=== PATIENT | male | born 1940 | race Caucasian/White ===

== ENCOUNTER 2021-11-16 03:14 | Inpatient (IN) ==
[2021-11-16] MEDS ORDERED: *HR* Dextrose 50 % in Water (Syg) 50 ML SYRINGE IVP PRN ×2 (07:30→09:28)
[2021-11-16] MEDS ORDERED: D5% in 0.45% NACL 1,000 ML IVC PRN (07:30)
[2021-11-16] MEDS ORDERED: D5% in 0.45% NACL w KCl 20 MEQ/1,000 ML MLS IVC PRN (07:30)
[2021-11-16] MEDS ORDERED: Insulin Regular, Human 100 UNIT/ML IV PRN (07:30)
[2021-11-16] MEDS ORDERED: D5% in 0.9% NACL w KCl 20 MEQ/1,000 ML MLS IVC SCH (07:30)
[2021-11-16] MEDS ORDERED: MOM Conc 10 ML UD.LIQ PO PRN (07:34)
[2021-11-16] MEDS ORDERED: Ondansetron ODT 4 MG TAB.RAPDIS SL PRN (07:34)
[2021-11-16] MEDS ORDERED: Naloxone 0.4 MG/ML INJ IVP PRN (07:34)
[2021-11-16] MEDS ORDERED: Acetaminophen 325 MG TABLET PO PRN (07:34)
[2021-11-16] MEDS ORDERED: Melatonin 3 MG TABLET PO PRN (07:34)
[2021-11-16] MEDS ORDERED: *HR* Heparin 5,000 UNIT/ML VIAL IVP PRN ×2 (07:49)
[2021-11-16] MEDS ORDERED: Perflutren Lipid Microsphere 1.3 ML in 0.9 % Sodium Chloride 8.7 ML IVP PRN (08:10)
[2021-11-16 08:46] LABS: VBG HCO3 28 mEq/L (21-27); VBG PCO2 60 mmHg (41-51); VBG PH 7.27 pH Units (7.32-7.42); VBG PO2 52 mmHg (25-50)
[2021-11-16 09:03] LABS: BUN/Creatinine Ratio 29 (6-26); Blood Urea Nitrogen 33 mg/dL (8-23); Calcium 10.1 mg/dL (8.6-10.3); Carbon Dioxide 27 mEq/L (23-29); Chloride 104 mEq/L (98-107); Glucose 131 mg/dL (70-105); Magnesium 1.4 mg/dL (1.6-2.6); Osmolality,Calculated 299 (280-300); Potassium 4.1 mEq/L (3.5-5.1); Sodium 140 mEq/L (136-145); eGFR For African Americans > 60 (> 60); eGFR For Non-African Americans > 60 (> 60)
[2021-11-16] MEDS ORDERED: Dextrose 4 GM Chewable Tablets PO PRN ×2 (09:28)
[2021-11-16] MEDS ORDERED: D5% in Water 1,000 ML IVC PRN (09:28)
[2021-11-16 09:29] LABS: INR 1.1; Prothrombin Time 11.7 Seconds (9.4-12.1)
[2021-11-16] MEDS ORDERED: Insulin DETEMIR 100 UNIT/ML X5UNITS SUBQ ONE (09:29)
[2021-11-16 09:30] LABS: Heparin anti-factor XA UFH 0.63 IU/mL (0.30-0.70)
[2021-11-16 10:02] LABS: Troponin I 14.01 ng/mL (< 0.04)
[2021-11-16] MEDS: Heparin 25,000UNIT/250ML 1/2NS 25,000 UNIT/250 ML IV.SOLN IVC SCH (10:15)
[2021-11-16 11:28] LABS: Basophils % 0.2 %; Eosinophils % 0.2 %; Hematocrit 36.1 % (37.5-50.1); Hemoglobin 11.8 g/dL (12.9-16.9); Immature Granulocytes % 0.4 % (0-4); Lymphocytes # 2.7 K/mcL (0.6-4.6); Lymphocytes % 19.5 %; Mean Corpuscular HGB Conc 32.7 g/dL (31.6-35.5); Mean Corpuscular Volume 91.9 fL (83.0-100.0); Mean Platelet Volume 10.8 fL (9.4-12.4); Monocytes # 1.3 K/mcL (0.0-1.3); Monocytes % 9.3 %; Neutrophils # 9.9 K/mcL (1.6-8.9); Platelet Count 198 K/mcL (140-400); Red Blood Count 3.93 M/mcL (4.19-5.50); Red Cell Distribution Width 13.2 % (11.5-14.5); Segmented Neutrophils % 70.4 %
[2021-11-16] MEDS ORDERED: Insulin LISPRO 300 UNITS/3 ML VIAL SUBQ SCH ×2 (11:30→21:00)
[2021-11-16] MEDS: Insulin LISPRO 300 UNITS/3 ML VIAL SUBQ SCH ×3 (13:56→20:12)
[2021-11-16 17:00] LABS: VBG HCO3 25 mEq/L (21-27); VBG PCO2 48 mmHg (41-51); VBG PH 7.33 pH Units (7.32-7.42); VBG PO2 183 mmHg (25-50)
[2021-11-17] MEDS: Insulin LISPRO 300 UNITS/3 ML VIAL SUBQ SCH ×7 (00:35→23:45)
[2021-11-17 05:21] LABS: Hematocrit 39.6 % (37.5-50.1); Hemoglobin 12.9 g/dL (12.9-16.9); Mean Corpuscular HGB Conc 32.6 g/dL (31.6-35.5); Mean Corpuscular Hemoglobin 29.6 pg (28.0-33.3); Mean Corpuscular Volume 90.8 fL (83.0-100.0); Mean Platelet Volume 10.7 fL (9.4-12.4); Platelet Count 204 K/mcL (140-400); Red Blood Count 4.36 M/mcL (4.19-5.50); Red Cell Distribution Width 13.2 % (11.5-14.5); White Blood Count 11.4 K/mcL (4.3-11.1)
[2021-11-17 05:39] LABS: BUN/Creatinine Ratio 25 (6-26); Blood Urea Nitrogen 27 mg/dL (8-23); Calcium 9.6 mg/dL (8.6-10.3); Carbon Dioxide 26 mEq/L (23-29); Chloride 106 mEq/L (98-107); Glucose 151 mg/dL (70-105); Osmolality,Calculated 300 (280-300); Potassium 4.5 mEq/L (3.5-5.1); Sodium 141 mEq/L (136-145); eGFR For African Americans > 60 (> 60); eGFR For Non-African Americans > 60 (> 60)
[2021-11-17] MEDS: Heparin 25,000UNIT/250ML 1/2NS 25,000 UNIT/250 ML IV.SOLN IVC SCH (11:32)
[2021-11-17] MEDS: Magnesium Oxide 400 MG TABLET PO SCH ×2 (11:40→20:53)
[2021-11-17] MEDS: Aspirin Enteric Coated 81 MG Tablet PO SCH (11:40)
[2021-11-17] MEDS ORDERED: 0.9 % Sodium Chloride 2,000 ML ONE (12:47)
[2021-11-17] MEDS ORDERED: Nitroglycerin 1,000 MCG/5 ML VIAL IV ONE ×2 (12:48→14:20)
[2021-11-17] MEDS ORDERED: Heparin 1,000 UNITS/500 mL 500 ML ONE ×3 (12:48→15:04)
[2021-11-17] MEDS ORDERED: *HR* Heparin 10,000 UNIT/10 ML VIAL ONE ×3 (12:48→14:29)
[2021-11-17] MEDS ORDERED: ISOVUE-370 200 ML INFUS..BTL ONE ×2 (12:48→14:20)
[2021-11-17 13:19] LABS: Estimated Average Glucose 246 mg/dl; Hemoglobin A1C 10.2 %
[2021-11-17] MEDS ORDERED: *HR* Midazolam HCl 2 MG/2 ML VIAL ONE (13:50)
[2021-11-17] MEDS ORDERED: *HR* FentaNYL (PF) 100 MCG/2 ML VIAL ONE (13:50)
[2021-11-17] MEDS ORDERED: 0.9 % Sodium Chloride 1,000 ML ONE (14:20)
[2021-11-17] MEDS ORDERED: Tirofiban 12.5 MG/250ML 12.5 MG/250 ML BAG ONE (14:36)
[2021-11-17] MEDS ORDERED: Magnesium Oxide 400 MG TABLET PO SCH (21:00)
[2021-11-18] MEDS: Insulin LISPRO 300 UNITS/3 ML VIAL SUBQ SCH ×6 (04:59→23:35)
[2021-11-18 05:52] LABS: Basophils % 0.2 %; Eosinophils # 0.1 K/mcL (0.0-0.6); Eosinophils % 1.2 %; Hematocrit 39.5 % (37.5-50.1); Hemoglobin 12.9 g/dL (12.9-16.9); Immature Granulocytes % 0.4 % (0-4); Lymphocytes # 2.8 K/mcL (0.6-4.6); Lymphocytes % 29.3 %; Mean Corpuscular HGB Conc 32.7 g/dL (31.6-35.5); Mean Corpuscular Hemoglobin 29.1 pg (28.0-33.3); Mean Corpuscular Volume 89.2 fL (83.0-100.0); Mean Platelet Volume 10.5 fL (9.4-12.4); Monocytes # 1.1 K/mcL (0.0-1.3); Monocytes % 11.9 %; Neutrophils # 5.4 K/mcL (1.6-8.9); Platelet Count 244 K/mcL (140-400); Red Blood Count 4.43 M/mcL (4.19-5.50); White Blood Count 9.4 K/mcL (4.3-11.1)
[2021-11-18 06:14] LABS: BUN/Creatinine Ratio 19 (6-26); Blood Urea Nitrogen 20 mg/dL (8-23); Carbon Dioxide 30 mEq/L (23-29); Chloride 102 mEq/L (98-107); Glucose 175 mg/dL (70-105); Magnesium 1.9 mg/dL (1.6-2.6); Osmolality,Calculated 295 (280-300); Potassium 3.8 mEq/L (3.5-5.1); Sodium 139 mEq/L (136-145); eGFR For African Americans > 60 (> 60); eGFR For Non-African Americans > 60 (> 60)
[2021-11-18] MEDS ORDERED: Regadenoson 0.4 MG/5 ML SYRINGE IVP ONE (06:34)
[2021-11-18] MEDS: Magnesium Oxide 400 MG TABLET PO SCH ×2 (09:44→21:14)
[2021-11-18] MEDS: rOPINIRole 1 MG TABLET PO SCH (09:44)
[2021-11-18] MEDS: Aspirin Enteric Coated 81 MG Tablet PO SCH (09:45)
[2021-11-18] MEDS: amLODIPine 5 MG TABLET PO SCH (09:45)
[2021-11-18] MEDS: Heparin 25,000UNIT/250ML 1/2NS 25,000 UNIT/250 ML IV.SOLN IVC SCH (21:13)
[2021-11-19] MEDS: Insulin LISPRO 300 UNITS/3 ML VIAL SUBQ SCH ×6 (07:21→23:41)
[2021-11-19] MEDS: rOPINIRole 1 MG TABLET PO SCH (08:11)
[2021-11-19] MEDS: Aspirin Enteric Coated 81 MG Tablet PO SCH (08:12)
[2021-11-19] MEDS: amLODIPine 5 MG TABLET PO SCH (08:12)
[2021-11-19] MEDS: Heparin 25,000UNIT/250ML 1/2NS 25,000 UNIT/250 ML IV.SOLN IVC SCH (09:53)
[2021-11-19 18:21] LABS: Basophils % 0.3 %; Eosinophils # 0.2 K/mcL (0.0-0.6); Eosinophils % 1.8 %; Hematocrit 40.1 % (37.5-50.1); Hemoglobin 13.1 g/dL (12.9-16.9); Immature Granulocytes % 0.4 % (0-4); Lymphocytes % 31.3 %; Mean Corpuscular HGB Conc 32.7 g/dL (31.6-35.5); Mean Corpuscular Hemoglobin 29.6 pg (28.0-33.3); Mean Corpuscular Volume 90.5 fL (83.0-100.0); Mean Platelet Volume 10.7 fL (9.4-12.4); Monocytes # 0.9 K/mcL (0.0-1.3); Monocytes % 9.1 %; Neutrophils # 5.6 K/mcL (1.6-8.9); Platelet Count 235 K/mcL (140-400); Red Blood Count 4.43 M/mcL (4.19-5.50); Segmented Neutrophils % 57.1 %; White Blood Count 9.7 K/mcL (4.3-11.1)
[2021-11-19 18:36] LABS: BUN/Creatinine Ratio 20 (6-26); Blood Urea Nitrogen 25 mg/dL (8-23); Calcium 9.2 mg/dL (8.6-10.3); Carbon Dioxide 27 mEq/L (23-29); Chloride 101 mEq/L (98-107); Chol/HDL Ratio 2.8 (0-4.9); Cholesterol 141 mg/dL (< 200); Glucose 309 mg/dL (70-105); HDL Cholesterol 50 mg/dL (40-59); LDL Cholesterol,Calculated 63 mg/dL (< 100); Osmolality,Calculated 298 (280-300); Potassium 4.2 mEq/L (3.5-5.1); Sodium 136 mEq/L (136-145); Triglycerides 138 mg/dL (< 150); eGFR For African Americans > 60 (> 60); eGFR For Non-African Americans 57 (> 60)
[2021-11-19 18:37] LABS: INR 1.1; Prothrombin Time 12.7 Seconds (9.4-12.1)
[2021-11-19 18:39] LABS: Activated Partial Thrombo Time 76.8 Seconds (26.0-36.0)
[2021-11-19] MEDS: 0.9 % Sodium Chloride 1,000 ML IVC SCH ×4 (19:26→19:30)
[2021-11-19] MEDS: 0.9 % Sodium Chloride w KCl 20 MEQ/1,000 ML MLS IVC SCH ×5 (19:26→19:31)
[2021-11-19] MEDS: Insulin DETEMIR 100 UNIT/ML X5UNITS SUBQ SCH (20:11)
[2021-11-19] MEDS: Chlorhexidine Rinse 15 ML MOUTHWASH MM SCH (20:11)
[2021-11-20 05:46] LABS: Hematocrit 35.4 % (37.5-50.1); Mean Corpuscular HGB Conc 32.5 g/dL (31.6-35.5); Mean Corpuscular Hemoglobin 29.3 pg (28.0-33.3); Mean Corpuscular Volume 90.1 fL (83.0-100.0); Mean Platelet Volume 10.7 fL (9.4-12.4); Platelet Count 211 K/mcL (140-400); Red Blood Count 3.93 M/mcL (4.19-5.50); Red Cell Distribution Width 12.9 % (11.5-14.5); White Blood Count 9.9 K/mcL (4.3-11.1)
[2021-11-20 05:48] LABS: Hemoglobin 11.5 g/dL (12.9-16.9)
[2021-11-20] MEDS: Aspirin 81 MG TAB.CHEW PO SCH ×2 (05:50→10:09)
[2021-11-20 05:53] LABS: INR 1.2; Prothrombin Time 12.9 Seconds (9.4-12.1)
[2021-11-20] MEDS ORDERED: NiCARdipine 2.5 MG/10 ML Syringe IVPB ONE (05:53)
[2021-11-20] MEDS ORDERED: DOBUTamine 1,000 MG/250 ML BAG ONE (05:53)
[2021-11-20] MEDS ORDERED: Papaverine 60 MG/2 ML VIAL IVP ONE (05:54)
[2021-11-20] MEDS ORDERED: *HR* Midazolam HCl 5 MG/5 ML VIAL IVP ONE (05:59)
[2021-11-20] MEDS ORDERED: *HR* FentaNYL (PF) 250 MCG/5 ML VIAL ONE (06:00)
[2021-11-20] MEDS ORDERED: CeFAZolin Syr 2,000MG/20 ML 2,000 MG/20 ML SYRINGE IVPB ONE (06:00)
[2021-11-20] MEDS ORDERED: *HR* Norepinephrine 4 MG/4 ML VIAL IVC ONE (06:01)
[2021-11-20] MEDS ORDERED: *HR* Rocuronium Bromide 50 MG/5 ML VIAL ONE (06:01)
[2021-11-20] MEDS ORDERED: niCARdipine 20 MG/200 ML MLS IVC ONE (06:01)
[2021-11-20] MEDS: Insulin LISPRO 300 UNITS/3 ML VIAL SUBQ SCH ×7 (06:01→23:42)
[2021-11-20] MEDS ORDERED: Calcium Gluconate 1,000 MG/10 ML VIAL ONE (06:02)
[2021-11-20] MEDS ORDERED: *HR* Etomidate 20 MG/10 ML AMPUL IVP ONE (06:02)
[2021-11-20] MEDS ORDERED: Protamine Sulfate 250 MG/25 ML VIAL IVP ONE (06:03)
[2021-11-20 06:09] LABS: BUN/Creatinine Ratio 23 (6-26); Blood Urea Nitrogen 26 mg/dL (8-23); Carbon Dioxide 27 mEq/L (23-29); Chloride 105 mEq/L (98-107); Glucose 129 mg/dL (70-105); Osmolality,Calculated 294 (280-300); Potassium 3.9 mEq/L (3.5-5.1); Sodium 139 mEq/L (136-145); eGFR For African Americans > 60 (> 60); eGFR For Non-African Americans > 60 (> 60)
[2021-11-20] MEDS ORDERED: del Nido Cardioplegia Solution PF ONE ×2 (07:00)
[2021-11-20] MEDS ORDERED: Heparin 15,000 UNIT in 0.9 % Sodium Chloride 500 ML IV ONE (07:00)
[2021-11-20] MEDS ORDERED: Norepinephrine 4 MG in 0.9 % Sodium Chloride 250 ML IVC PRN (07:00)
[2021-11-20] MEDS ORDERED: Buckersberg's Blood Cardioplegia PF ONE (07:00)
[2021-11-20 07:26] LABS: ABG Base Excess 0 mEq/L (-2 to 3); ABG Chloride 105 mEq/L (98-107); ABG Glucose 156 mg/dL (60-95); ABG HCO3 26 mEq/L (21-27); ABG Ionized Calcium 1.24 mmol/L (1.15-1.35); ABG Oxygen Saturation 100 % (95-98); ABG PCO2 46 mmHg (35-45); ABG PH 7.36 pH Units (7.32-7.45); ABG PO2 540 mmHg (85-104); ABG TCO2 28 mEq/L (20-26)
[2021-11-20] MEDS ORDERED: *HR* Phenylephrine 10 MG/ML VIAL ONE (08:11)
[2021-11-20] MEDS ORDERED: Ondansetron 4 MG/2 ML VIAL ONE (08:51)
[2021-11-20 08:52] LABS: ABG Base Excess -2 mEq/L (-2 to 3); ABG Chloride 106 mEq/L (98-107); ABG Glucose 191 mg/dL (60-95); ABG HCO3 23 mEq/L (21-27); ABG Ionized Calcium 1.18 mmol/L (1.15-1.35); ABG Oxygen Saturation 97 % (95-98); ABG PCO2 38 mmHg (35-45); ABG PH 7.39 pH Units (7.32-7.45); ABG PO2 86 mmHg (85-104); ABG TCO2 24 mEq/L (20-26)
[2021-11-20] MEDS ORDERED: Potassium Chloride 40 MEQ/200 ML BAG IVPB PRN (10:04)
[2021-11-20] MEDS ORDERED: Ketorolac 30 MG/ML VIAL ONE (10:04)
[2021-11-20] MEDS ORDERED: Insulin Regular, Human 100 UNIT/ML IV PRN (10:04)
[2021-11-20] MEDS ORDERED: *HR* OxyCODONE/APAP 5/325 TABLET PO PRN ×2 (10:04→13:56)
[2021-11-20] MEDS ORDERED: *HR* Dextrose 50 % in Water (Syg) 50 ML SYRINGE IVP PRN (10:04)
[2021-11-20] MEDS ORDERED: Calcium Gluconate 1gm/50mL 1 GM/50 ML BAG IVPB PRN (10:04)
[2021-11-20] MEDS ORDERED: Ondansetron 4 MG/2 ML VIAL IVP PRN (10:04)
[2021-11-20] MEDS ORDERED: *HR* FentaNYL (PF) 100 MCG/2 ML VIAL IVP PRN (10:04)
[2021-11-20 10:10] LABS: ABG Base Excess -2 mEq/L (-2 to 3); ABG Chloride 104 mEq/L (98-107); ABG Glucose 196 mg/dL (60-95); ABG HCO3 23 mEq/L (21-27); ABG Ionized Calcium 1.43 mmol/L (1.15-1.35); ABG Oxygen Saturation 100 % (95-98); ABG PCO2 36 mmHg (35-45); ABG PO2 161 mmHg (85-104); ABG TCO2 24 mEq/L (20-26)
[2021-11-20] MEDS: amLODIPine 5 MG TABLET PO SCH (10:10)
[2021-11-20] MEDS: rOPINIRole 1 MG TABLET PO SCH (10:10)
[2021-11-20] MEDS: Chlorhexidine Rinse 15 ML MOUTHWASH MM SCH ×2 (10:11→20:11)
[2021-11-20] MEDS ORDERED: DOBUTamine 1,000 MG/250 ML BAG IVC SCH (10:15)
[2021-11-20] MEDS ORDERED: Sugammadex Sodium 200 MG/2 ML VIAL IV ONE (10:16)
[2021-11-20 10:53] LABS: ABG Base Excess 0 mEq/L (-2 to 3); ABG HCO3 26 mEq/L (21-27); ABG Oxygen Saturation 97 % (95-98); ABG PCO2 48 mmHg (35-45); ABG PH 7.35 pH Units (7.32-7.45); ABG PO2 92 mmHg (85-104); ABG TCO2 28 mEq/L (20-26)
[2021-11-20] MEDS: Albumin Human 5% 12.5 GM/250 ML IV.SOLN IVPB PRN ×6 (11:00→12:01)
[2021-11-20 11:02] LABS: Basophils # 0.1 K/mcL (0.0-0.2); Basophils % 0.4 %; Eosinophils # 0.3 K/mcL (0.0-0.6); Eosinophils % 1.4 %; Hematocrit 34.6 % (37.5-50.1); Immature Granulocytes % 1.8 % (0-4); Lymphocytes # 2.5 K/mcL (0.6-4.6); Lymphocytes % 13.5 %; Mean Corpuscular HGB Conc 33.2 g/dL (31.6-35.5); Mean Corpuscular Hemoglobin 29.7 pg (28.0-33.3); Mean Corpuscular Volume 89.4 fL (83.0-100.0); Mean Platelet Volume 10.1 fL (9.4-12.4); Monocytes % 6.7 %; Neutrophils # 14.1 K/mcL (1.6-8.9); Platelet Count 185 K/mcL (140-400); Red Blood Count 3.87 M/mcL (4.19-5.50); Red Cell Distribution Width 13.1 % (11.5-14.5); Segmented Neutrophils % 76.2 %
[2021-11-20 11:03] LABS: Monocytes # 1.2 K/mcL (0.0-1.3); White Blood Count 18.5 K/mcL (4.3-11.1)
[2021-11-20 11:07] LABS: Hemoglobin 11.5 g/dL (12.9-16.9); INR 1.3; Prothrombin Time 14.2 Seconds (9.4-12.1)
[2021-11-20 11:15] LABS: Activated Partial Thrombo Time 30.4 Seconds (26.0-36.0)
[2021-11-20 11:18] LABS: BUN/Creatinine Ratio 23 (6-26); Blood Urea Nitrogen 27 mg/dL (8-23); Calcium 9.1 mg/dL (8.6-10.3); Carbon Dioxide 25 mEq/L (23-29); Chloride 105 mEq/L (98-107); Glucose 215 mg/dL (70-105); Magnesium 1.3 mg/dL (1.6-2.6); Osmolality,Calculated 298 (280-300); Potassium 4.1 mEq/L (3.5-5.1); Sodium 138 mEq/L (136-145); eGFR For African Americans > 60 (> 60); eGFR For Non-African Americans > 60 (> 60)
[2021-11-20] MEDS: Norepinephrine 4 MG/254 ML IV.SOLN IVC SCH ×2 (11:42→12:00)
[2021-11-20] MEDS: niCARdipine 20 MG/200 ML MLS IVC SCH ×5 (11:42→23:41)
[2021-11-20] MEDS: Pantoprazole 40 MG VIAL IVP SCH (11:57)
[2021-11-20] MEDS ORDERED: *HR* Heparin 10,000 UNIT/10 ML VIAL IR ONE (12:00)
[2021-11-20] MEDS ORDERED: Heparin 1,000 UNITS/500 mL IV.SOLN IR ONE (12:00)
[2021-11-20] MEDS ORDERED: *HR* OxyCODONE/APAP 5/325 TABLET PO ONE (13:09)
[2021-11-20] MEDS: Albumin Human 5% 12.5 GM/250 ML IV.SOLN IVC SCH ×2 (13:46→13:57)
[2021-11-20] MEDS ORDERED: Aspirin 81 MG TAB.CHEW PO ONE (15:00)
[2021-11-20] MEDS: CeFAZolin 2 GM/120 ML BAG IVPB SCH ×2 (15:06→23:37)
[2021-11-20] MEDS: Gabapentin 300 MG CAPSULE PO SCH ×2 (15:06→20:11)
[2021-11-20] MEDS: Insulin DETEMIR 100 UNIT/ML X5UNITS SUBQ SCH (20:11)
[2021-11-21 03:29] LABS: Basophils % 0.1 %; Hematocrit 27.9 % (37.5-50.1); Immature Granulocytes % 0.4 % (0-4); Lymphocytes # 1.7 K/mcL (0.6-4.6); Lymphocytes % 13.5 %; Mean Corpuscular HGB Conc 32.3 g/dL (31.6-35.5); Mean Corpuscular Hemoglobin 29.1 pg (28.0-33.3); Mean Corpuscular Volume 90.3 fL (83.0-100.0); Mean Platelet Volume 10.3 fL (9.4-12.4); Monocytes # 1.3 K/mcL (0.0-1.3); Monocytes % 10.6 %; Neutrophils # 9.3 K/mcL (1.6-8.9); Platelet Count 160 K/mcL (140-400); Red Blood Count 3.09 M/mcL (4.19-5.50); Red Cell Distribution Width 13.2 % (11.5-14.5); Segmented Neutrophils % 75.4 %; White Blood Count 12.3 K/mcL (4.3-11.1)
[2021-11-21 03:43] LABS: INR 1.2; Prothrombin Time 13.8 Seconds (9.4-12.1)
[2021-11-21 03:45] LABS: Activated Partial Thrombo Time 30.2 Seconds (26.0-36.0)
[2021-11-21 03:51] LABS: BUN/Creatinine Ratio 21 (6-26); Blood Urea Nitrogen 24 mg/dL (8-23); Calcium 8.7 mg/dL (8.6-10.3); Carbon Dioxide 24 mEq/L (23-29); Chloride 106 mEq/L (98-107); Glucose 137 mg/dL (70-105); Magnesium 1.9 mg/dL (1.6-2.6); Osmolality,Calculated 296 (280-300); Potassium 4.1 mEq/L (3.5-5.1); Sodium 140 mEq/L (136-145); eGFR For African Americans > 60 (> 60); eGFR For Non-African Americans > 60 (> 60)
[2021-11-21] MEDS: niCARdipine 20 MG/200 ML MLS IVC SCH (05:27)
[2021-11-21] MEDS ORDERED: *HR* Enoxaparin 40 MG/0.4 ML SYRINGE SQ SCH (06:00)
[2021-11-21] MEDS ORDERED: Bumetanide 1 MG/4 ML VIAL IVP SCH ×2 (08:30→17:00)
[2021-11-21] MEDS: Pantoprazole 40 MG VIAL IVP SCH (08:37)
[2021-11-21] MEDS: Chlorhexidine Rinse 15 ML MOUTHWASH MM SCH ×2 (08:37→20:53)
[2021-11-21] MEDS: rOPINIRole 1 MG TABLET PO SCH (08:38)
[2021-11-21] MEDS: amLODIPine 5 MG TABLET PO SCH (08:38)
[2021-11-21] MEDS: Gabapentin 300 MG CAPSULE PO SCH ×3 (08:38→20:53)
[2021-11-21] MEDS ORDERED: Furosemide 40 MG/4 ML VIAL IVP SCH (09:00)
[2021-11-21] MEDS ORDERED: Aspirin 81 MG TAB.CHEW PO SCH (09:00)
[2021-11-21] MEDS: CeFAZolin 2 GM/120 ML BAG IVPB SCH ×3 (09:02→18:00)
[2021-11-21] MEDS ORDERED: Ondansetron 4 MG/2 ML VIAL IVP PRN (13:46)
[2021-11-21] MEDS ORDERED: Insulin LISPRO 300 UNITS/3 ML VIAL SUBQ SCH ×2 (13:46→21:00)
[2021-11-21] MEDS ORDERED: *HR* Dextrose 50 % in Water (Syg) 50 ML SYRINGE IVP PRN ×5 (13:46→17:05)
[2021-11-21] MEDS ORDERED: Dextrose 4 GM Chewable Tablets PO PRN ×4 (13:46)
[2021-11-21] MEDS ORDERED: D5% in Water 1,000 ML IVC PRN (13:46)
[2021-11-21] MEDS ORDERED: Calcium Gluconate 1gm/50mL 1 GM/50 ML BAG IVPB PRN (13:46)
[2021-11-21] MEDS ORDERED: Melatonin 3 MG TABLET PO PRN (13:46)
[2021-11-21] MEDS ORDERED: Naloxone 0.4 MG/ML INJ IVP PRN (13:46)
[2021-11-21] MEDS ORDERED: *HR* OxyCODONE/APAP 5/325 TABLET PO PRN ×2 (13:46)
[2021-11-21] MEDS ORDERED: Acetaminophen 325 MG TABLET PO PRN (13:46)
[2021-11-21] MEDS ORDERED: Ondansetron ODT 4 MG TAB.RAPDIS SL PRN (13:46)
[2021-11-21] MEDS ORDERED: Insulin LISPRO 300 UNITS/3 ML VIAL SUBQ ONE (17:02)
[2021-11-21] MEDS ORDERED: Insulin DETEMIR 100 UNIT/ML X5UNITS SUBQ SCH (21:00)
[2021-11-22] MEDS ORDERED: 0.9 % Sodium Chloride 500 ML IVC ONE (00:59)
[2021-11-22] MEDS: CeFAZolin 2 GM/120 ML BAG IVPB SCH ×2 (01:34→08:41)
[2021-11-22 01:46] LABS: Basophils % 0.2 %; Eosinophils % 0.4 %; Hemoglobin 9.4 g/dL (12.9-16.9); Immature Granulocytes % 0.7 % (0-4); Lymphocytes # 2.1 K/mcL (0.6-4.6); Lymphocytes % 19.9 %; Mean Corpuscular HGB Conc 32.4 g/dL (31.6-35.5); Mean Corpuscular Hemoglobin 29.7 pg (28.0-33.3); Mean Corpuscular Volume 91.5 fL (83.0-100.0); Mean Platelet Volume 10.7 fL (9.4-12.4); Monocytes # 1.9 K/mcL (0.0-1.3); Monocytes % 17.5 %; Neutrophils # 6.6 K/mcL (1.6-8.9); Platelet Count 167 K/mcL (140-400); Red Blood Count 3.17 M/mcL (4.19-5.50); Red Cell Distribution Width 13.4 % (11.5-14.5); Segmented Neutrophils % 61.3 %; White Blood Count 10.7 K/mcL (4.3-11.1)
[2021-11-22 01:47] LABS: Basophils % 0.3 %; Eosinophils % 0.4 %; Hemoglobin 9.4 g/dL (12.9-16.9); Immature Granulocytes % 0.6 % (0-4); Lymphocytes # 2.1 K/mcL (0.6-4.6); Lymphocytes % 19.9 %; Mean Corpuscular HGB Conc 32.4 g/dL (31.6-35.5); Mean Corpuscular Hemoglobin 29.7 pg (28.0-33.3); Mean Corpuscular Volume 91.5 fL (83.0-100.0); Mean Platelet Volume 10.8 fL (9.4-12.4); Monocytes # 1.8 K/mcL (0.0-1.3); Monocytes % 16.9 %; Neutrophils # 6.6 K/mcL (1.6-8.9); Platelet Count 171 K/mcL (140-400); Red Blood Count 3.17 M/mcL (4.19-5.50); Red Cell Distribution Width 13.4 % (11.5-14.5); Segmented Neutrophils % 61.9 %; White Blood Count 10.7 K/mcL (4.3-11.1)
[2021-11-22 01:54] LABS: INR 1.2; Prothrombin Time 13.8 Seconds (9.4-12.1)
[2021-11-22 01:57] LABS: Activated Partial Thrombo Time 29.9 Seconds (26.0-36.0)
[2021-11-22 02:05] LABS: Calcium 8.7 mg/dL (8.6-10.3); Magnesium 1.8 mg/dL (1.6-2.6); Potassium 3.7 mEq/L (3.5-5.1)
[2021-11-22 02:06] LABS: Calcium 8.9 mg/dL (8.6-10.3); Magnesium 1.8 mg/dL (1.6-2.6); Potassium 3.7 mEq/L (3.5-5.1)
[2021-11-22] MEDS ORDERED: 0.9 % Sodium Chloride 500 ML IVPB ONE (02:33)
[2021-11-22] MEDS ORDERED: 0.9 % Sodium Chloride 500 ML IV ONE (02:45)
[2021-11-22] MEDS: *HR* Enoxaparin 40 MG/0.4 ML SYRINGE SQ SCH (05:31)
[2021-11-22] MEDS ORDERED: Insulin DETEMIR 100 UNIT/ML X5UNITS SUBQ ONE (07:23)
[2021-11-22] MEDS ORDERED: D5% in Water 1,000 ML IVC PRN (07:24)
[2021-11-22] MEDS ORDERED: Dextrose 4 GM Chewable Tablets PO PRN ×2 (07:24)
[2021-11-22] MEDS ORDERED: *HR* Dextrose 50 % in Water (Syg) 50 ML SYRINGE IVP PRN (07:24)
[2021-11-22] MEDS ORDERED: 0.9 % Sodium Chloride 1,000 ML IVC SCH (07:30)
[2021-11-22] MEDS: rOPINIRole 1 MG TABLET PO SCH (08:23)
[2021-11-22] MEDS: Aspirin 81 MG TAB.CHEW PO SCH (08:24)
[2021-11-22] MEDS: Gabapentin 300 MG CAPSULE PO SCH ×2 (08:24→14:43)
[2021-11-22] MEDS: Insulin LISPRO 300 UNITS/3 ML VIAL SUBQ SCH ×4 (08:24→21:24)
[2021-11-22] MEDS: Pantoprazole 40 MG VIAL IVP SCH (08:25)
[2021-11-22] MEDS: Chlorhexidine Rinse 15 ML MOUTHWASH MM SCH ×2 (08:25→20:47)
[2021-11-22] MEDS ORDERED: amLODIPine 5 MG TABLET PO SCH (09:00)
[2021-11-22] MEDS: Furosemide 20 MG/2 ML VIAL IVP SCH ×2 (14:51→20:46)
[2021-11-22] MEDS: Potassium Chloride Elixir 20 MEQ/15 ML UDC PO SCH (14:52)
[2021-11-22] MEDS ORDERED: Insulin DETEMIR 100 UNIT/ML X5UNITS SUBQ SCH (21:00)
[2021-11-23 01:12] LABS: Basophils % 0.2 %; Eosinophils # 0.1 K/mcL (0.0-0.6); Eosinophils % 0.7 %; Hematocrit 29.8 % (37.5-50.1); Immature Granulocytes % 0.7 % (0-4); Lymphocytes # 1.2 K/mcL (0.6-4.6); Lymphocytes % 12.1 %; Mean Corpuscular HGB Conc 33.6 g/dL (31.6-35.5); Mean Corpuscular Hemoglobin 29.9 pg (28.0-33.3); Mean Corpuscular Volume 89.2 fL (83.0-100.0); Monocytes # 1.1 K/mcL (0.0-1.3); Monocytes % 11.2 %; Neutrophils # 7.6 K/mcL (1.6-8.9); Platelet Count 173 K/mcL (140-400); Red Blood Count 3.34 M/mcL (4.19-5.50); Red Cell Distribution Width 13.3 % (11.5-14.5); Segmented Neutrophils % 75.1 %; White Blood Count 10.2 K/mcL (4.3-11.1)
[2021-11-23 01:37] LABS: BUN/Creatinine Ratio 22 (6-26); Blood Urea Nitrogen 27 mg/dL (8-23); Calcium 8.7 mg/dL (8.6-10.3); Carbon Dioxide 27 mEq/L (23-29); Chloride 99 mEq/L (98-107); Glucose 404 mg/dL (70-105); Magnesium 1.7 mg/dL (1.6-2.6); Osmolality,Calculated 304 (280-300); Potassium 3.9 mEq/L (3.5-5.1); Sodium 136 mEq/L (136-145); eGFR For African Americans > 60 (> 60); eGFR For Non-African Americans 55 (> 60)
[2021-11-23] MEDS ORDERED: Insulin Human Regular 10 UNIT in 0.9 % Sodium Chloride 10 ML IV ONE ×2 (01:43→17:07)
[2021-11-23] MEDS: *HR* Enoxaparin 40 MG/0.4 ML SYRINGE SQ SCH (05:10)
[2021-11-23] MEDS: rOPINIRole 1 MG TABLET PO SCH (07:47)
[2021-11-23] MEDS: Aspirin 81 MG TAB.CHEW PO SCH (07:47)
[2021-11-23] MEDS: Chlorhexidine Rinse 15 ML MOUTHWASH MM SCH ×2 (07:48→20:09)
[2021-11-23] MEDS: Furosemide 20 MG/2 ML VIAL IVP SCH ×2 (07:48→20:08)
[2021-11-23] MEDS: Pantoprazole 40 MG VIAL IVP SCH (07:48)
[2021-11-23] MEDS: Insulin LISPRO 300 UNITS/3 ML VIAL SUBQ SCH ×4 (07:49→20:10)
[2021-11-23] MEDS ORDERED: Amiodarone Premix 150 MG/100 ML BAG IVPB ONE (08:00)
[2021-11-23] MEDS: Metoprolol XL (24 HR) Succ 50 MG TAB.ER.24H PO SCH (08:18)
[2021-11-23] MEDS: Potassium Chloride Elixir 20 MEQ/15 ML UDC PO SCH (08:20)
[2021-11-23] MEDS ORDERED: Amiodarone Premix 360 MG/200 ML BAG IVC ONE (12:15)
[2021-11-23] MEDS: *HR* Metformin 500 MG TABLET PO SCH (17:14)
[2021-11-23] MEDS ORDERED: Insulin Human Regular 20 UNIT in 0.9 % Sodium Chloride 10 ML IV ONE (18:04)
[2021-11-23] MEDS: Amiodarone Premix 360 MG/200 ML BAG IVC SCH (19:05)
[2021-11-23] MEDS ORDERED: Insulin DETEMIR 100 UNIT/ML X5UNITS SUBQ SCH (21:00)
[2021-11-24 02:25] LABS: Basophils % 0.3 %; Eosinophils # 0.2 K/mcL (0.0-0.6); Eosinophils % 3.2 %; Hemoglobin 9.5 g/dL (12.9-16.9); Immature Granulocytes % 0.7 % (0-4); Lymphocytes # 1.8 K/mcL (0.6-4.6); Lymphocytes % 23.7 %; Mean Corpuscular HGB Conc 32.8 g/dL (31.6-35.5); Mean Corpuscular Hemoglobin 29.6 pg (28.0-33.3); Mean Corpuscular Volume 90.3 fL (83.0-100.0); Monocytes # 0.8 K/mcL (0.0-1.3); Monocytes % 10.1 %; Neutrophils # 4.7 K/mcL (1.6-8.9); Platelet Count 187 K/mcL (140-400); Red Blood Count 3.21 M/mcL (4.19-5.50); White Blood Count 7.6 K/mcL (4.3-11.1)
[2021-11-24 02:43] LABS: BUN/Creatinine Ratio 20 (6-26); Blood Urea Nitrogen 25 mg/dL (8-23); Calcium 8.4 mg/dL (8.6-10.3); Carbon Dioxide 27 mEq/L (23-29); Chloride 99 mEq/L (98-107); Glucose 304 mg/dL (70-105); Magnesium 1.6 mg/dL (1.6-2.6); Osmolality,Calculated 298 (280-300); Potassium 3.9 mEq/L (3.5-5.1); Sodium 136 mEq/L (136-145); eGFR For African Americans > 60 (> 60); eGFR For Non-African Americans 55 (> 60)
[2021-11-24] MEDS: *HR* Enoxaparin 40 MG/0.4 ML SYRINGE SQ SCH (05:54)
[2021-11-24] MEDS: Amiodarone Premix 360 MG/200 ML BAG IVC SCH (07:25)
[2021-11-24] MEDS: Aspirin 81 MG TAB.CHEW PO SCH (07:26)
[2021-11-24] MEDS: *HR* Metformin 500 MG TABLET PO SCH (07:26)
[2021-11-24] MEDS: Potassium Chloride Elixir 20 MEQ/15 ML UDC PO SCH (07:27)
[2021-11-24] MEDS: Metoprolol XL (24 HR) Succ 50 MG TAB.ER.24H PO SCH (07:27)
[2021-11-24] MEDS: Pantoprazole 40 MG VIAL IVP SCH (07:27)
[2021-11-24] MEDS: Chlorhexidine Rinse 15 ML MOUTHWASH MM SCH ×2 (07:27→21:32)
[2021-11-24] MEDS: rOPINIRole 1 MG TABLET PO SCH (07:27)
[2021-11-24] MEDS: Furosemide 20 MG/2 ML VIAL IVP SCH (07:34)
[2021-11-24] MEDS: Insulin LISPRO 300 UNITS/3 ML VIAL SUBQ SCH ×7 (07:47→21:32)
[2021-11-24] MEDS ORDERED: *HR* Amiodarone 200 MG TABLET PO SCH (12:00)
[2021-11-24] MEDS: *HR* Amiodarone 200 MG TABLET PO SCH (21:31)
[2021-11-24] MEDS: Insulin DETEMIR 100 UNIT/ML X5UNITS SUBQ SCH (21:32)
[2021-11-25 03:34] LABS: Basophils % 0.4 %; Eosinophils # 0.3 K/mcL (0.0-0.6); Eosinophils % 4.1 %; Hemoglobin 9.5 g/dL (12.9-16.9); Immature Granulocytes % 0.5 % (0-4); Lymphocytes % 26.3 %; Mean Corpuscular HGB Conc 32.8 g/dL (31.6-35.5); Mean Corpuscular Hemoglobin 29.3 pg (28.0-33.3); Mean Corpuscular Volume 89.5 fL (83.0-100.0); Mean Platelet Volume 10.8 fL (9.4-12.4); Monocytes # 0.8 K/mcL (0.0-1.3); Neutrophils # 4.5 K/mcL (1.6-8.9); Platelet Count 235 K/mcL (140-400); Red Blood Count 3.24 M/mcL (4.19-5.50); Red Cell Distribution Width 12.8 % (11.5-14.5); Segmented Neutrophils % 58.7 %; White Blood Count 7.6 K/mcL (4.3-11.1)
[2021-11-25 03:50] LABS: Calcium 8.6 mg/dL (8.6-10.3); Magnesium 1.7 mg/dL (1.6-2.6); Potassium 3.9 mEq/L (3.5-5.1)
[2021-11-25] MEDS: *HR* Enoxaparin 40 MG/0.4 ML SYRINGE SQ SCH (05:19)
[2021-11-25] MEDS: Insulin LISPRO 300 UNITS/3 ML VIAL SUBQ SCH ×7 (07:41→19:46)
[2021-11-25] MEDS: Chlorhexidine Rinse 15 ML MOUTHWASH MM SCH ×2 (07:42→19:46)
[2021-11-25] MEDS: rOPINIRole 1 MG TABLET PO SCH (07:42)
[2021-11-25] MEDS: Potassium Chloride Elixir 20 MEQ/15 ML UDC PO SCH (07:42)
[2021-11-25] MEDS: Metoprolol XL (24 HR) Succ 50 MG TAB.ER.24H PO SCH (07:42)
[2021-11-25] MEDS: Furosemide 20 MG/2 ML VIAL IVP SCH (07:43)
[2021-11-25] MEDS: *HR* Amiodarone 200 MG TABLET PO SCH ×2 (07:43→19:46)
[2021-11-25] MEDS: Pantoprazole 40 MG VIAL IVP SCH (07:43)
[2021-11-25] MEDS: Aspirin 81 MG TAB.CHEW PO SCH (07:43)
[2021-11-25] MEDS: Insulin DETEMIR 100 UNIT/ML X5UNITS SUBQ SCH (19:46)
[2021-11-26 02:20] LABS: Hematocrit 29.7 % (37.5-50.1); Hemoglobin 9.9 g/dL (12.9-16.9); Mean Corpuscular HGB Conc 33.3 g/dL (31.6-35.5); Mean Corpuscular Hemoglobin 29.8 pg (28.0-33.3); Mean Corpuscular Volume 89.5 fL (83.0-100.0); Mean Platelet Volume 10.4 fL (9.4-12.4); Platelet Count 228 K/mcL (140-400); Red Blood Count 3.32 M/mcL (4.19-5.50); Red Cell Distribution Width 12.8 % (11.5-14.5); White Blood Count 7.8 K/mcL (4.3-11.1)
[2021-11-26 02:43] LABS: BUN/Creatinine Ratio 24 (6-26); Blood Urea Nitrogen 32 mg/dL (8-23); Calcium 9.1 mg/dL (8.6-10.3); Carbon Dioxide 27 mEq/L (23-29); Chloride 100 mEq/L (98-107); Glucose 156 mg/dL (70-105); Osmolality,Calculated 292 (280-300); Potassium 4.7 mEq/L (3.5-5.1); Sodium 136 mEq/L (136-145); eGFR For African Americans > 60 (> 60); eGFR For Non-African Americans 53 (> 60)
[2021-11-26] MEDS: *HR* Enoxaparin 40 MG/0.4 ML SYRINGE SQ SCH (05:41)
[2021-11-26] MEDS: Chlorhexidine Rinse 15 ML MOUTHWASH MM SCH (07:40)
[2021-11-26] MEDS: *HR* Amiodarone 200 MG TABLET PO SCH (07:41)
[2021-11-26] MEDS: Aspirin 81 MG TAB.CHEW PO SCH (07:41)
[2021-11-26] MEDS: rOPINIRole 1 MG TABLET PO SCH (07:41)
[2021-11-26] MEDS: Metoprolol XL (24 HR) Succ 50 MG TAB.ER.24H PO SCH (07:41)
[2021-11-26] MEDS: Furosemide 20 MG/2 ML VIAL IVP SCH (07:41)
[2021-11-26] MEDS: Pantoprazole 40 MG VIAL IVP SCH (07:42)
[2021-11-26] MEDS: Insulin LISPRO 300 UNITS/3 ML VIAL SUBQ SCH ×6 (07:43→17:11)
[2021-11-26 12:24] VITALS: TEMP 98.2
[2021-11-26 15:32] VITALS: BP 129/65; PULSE 83; O2SAT 98
== END 2021-11-26 18:50 | DRG 231 ==
LOC: 2NNU → SUATTDRO 07:04 → ICNU 11-20 08:13 → 2NNU 11-21 15:16
PROVIDERS: ADMIT Internal Medicine; ATTEND General Practice